=== PATIENT | female | born 1955 | race Caucasian/White ===

== ENCOUNTER 2018-02-28 09:21 | Day surgery (SDC) | payer OTHER ==
[~2018-02-28 09:21] MED LIST: BUPIV. HCL 0.25% (2.5MG/ML)/EPI. (1:200,000) PF 30 ML VIAL IJ ONE; DEXAMETHASONE SOD PHOS 4 MG/ML VIAL ONE; FAMOTIDINE 20 MG/2 ML VIAL ONE; FENTANYL CITRATE/PF 250 MCG/5 ML INJ. ONE; LACTATED RINGERS 1,000 ML IV.SOLN IV ONE; LEVALBUTEROL HCL 1.25 MG/3 ML AMPUL.NEB NEB ONE; LIDOCAINE HCL 2% PF 100MG/5ML VIAL IJ ONE; MIDAZOLAM HCL 2 MG/2 ML VIAL ONE; ONDANSETRON HCL/PF 4 MG/ 2ML VIAL ONE; PROPOFOL 200 MG/20 ML VIAL IV ONE; ROCURONIUM BROMIDE 10 MG/ML 5ML VIAL ONE; SEVOFLURANE 250 ML LIQUID IH ONE; SUGAMMADEX SODIUM 200 MG/2 ML VIAL IV ONE; THROMBIN (RECOMBINANT) 20,000 UNIT VIAL TP ONE; ceFAZolin SODIUM 1 GM VIAL ONE; ePHEDrine SULFATE 50 MG/1 ML IVP ONE
--- NOTE | 2018-05-06 14:44 | Operative Note ---
OPERATIVE REPORT PATIENT NAME: RM LANG DATE OF : 1955 MR#: PROCEDURE DATE: 05/06/2018 PREOPERATIVE DIAGNOSIS: Herniated nucleus pulposus, central stenosis, bilateral foraminal stenosis with neurogenic claudication, C5-6 and C6-7. POSTOPERATIVE DIAGNOSIS: Herniated nucleus pulposus, central stenosis, bilateral foraminal stenosis with neurogenic claudication, C5-6 and C6-7. PROCEDURES PERFORMED: 1. Radical anterior cervical discectomy, C5-6. 2. Radical anterior cervical discectomy, C6-7. 3. Partial vertebrectomy for decompression of central and bilateral foraminal stenosis, posterior inferior aspect of the C5 vertebral body. 4. Partial vertebrectomy for decompression of central and bilateral foraminal stenosis, posterior superior aspect of the C6 vertebral body. 5. Partial vertebrectomy for decompression of central and bilateral foraminal stenosis, posterior inferior aspect of the C6 vertebral body. 6. Partial vertebrectomy for decompression of central and bilateral foraminal stenosis, posterior superior aspect of the C7 vertebral body. 7. Placement of cervical total disc replacement arthroplasty at the C5-6 level. 8. Placement of cervical total disc replacement arthroplasty at the C6-7 level. 9. Intraoperative fluoroscopy and interpretation for needle placement. SURGEON: Leonel Lucas Jr., M.D. [employer]: None. ANESTHESIA: General. COMPLICATIONS: None. CONDITION FOLLOWING THE PROCEDURE: Good. OPERATIVE FINDINGS: This patient has suffered for months with cervical spine pain and bilateral upper extremity and shoulder pain attributable to identified by MRI scan cervical stenosis at C5-6 and C6-7, giving neurogenic claudication. The patient was counseled regarding options, having failed prolonged conservative management and being narcotic-dependent for the pain. The patient has elected cervical total disc replacement arthroplasty which was carried out today after adequate decompression and partial vertebrectomies. Implants were placed in ideal position as determined radiographically during the intraoperative portion of the procedure. DESCRIPTION OF PROCEDURE: The patient was taken to the operating room and intravenous antibiotics administered. The neck was shaved to the degree necessary. Steri-Drapes were applied at the intended surgical site edges. The surgical site was then scrubbed and prepped to sterility. Sterile draping then occurred. X-ray was brought into position and a radiographic marker was placed identifying the extended center line of the disc for intended surgical care. Beginning at the midline, a transverse surgical incision was made extending to the left approximately 2 cm. Once the epidermis was penetrated, the dermis was incised with electrocautery. Dissection through the subcutaneous tissue with Metzenbaum scissors and digitally was performed down until the interval between the trachea and the carotid triangle and the esophagus was clearly established down to the Longus colli muscles on the left side of the anterior cervical spine at the C5-6 level. Gentle retraction of the trachea and esophagus occurred to the right side while Kitner retractors were used to bluntly open the prevertebral fascia and reveal the annulus. Into the annulus was placed a safety needle and all retractors were removed and x-rays taken to confirm midline placement of the needle, and that the correct anatomic level was still identified. Electrocautery was then used to elevate the Longus colli muscles after [employer] Retractor blades were replaced. The needle had been removed. The [employer] tined retractor blades of the appropriate length were then inserted under the Longus colli muscles and retracted to reveal the anterior disc space sufficiently from left to right. The annulus was then incised with a #15 blade scalpel and removed. Pituitary rongeurs were then used to begin to evacuate the disc material. [place] pins were then inserted into the midportion of the vertebral body anteriorly above and below the affected disc. [place] retractor was then placed and distraction began. This allowed larger pituitary rongeurs to be inserted and all disc material was removed back to the impinging posterior osteophytes. A curette was then used and the endplates were curettaged until all cartilaginous material was removed, exposing bleeding bone. A smaller curette was then used to penetrate the posterior osteophyte all the way down to the removal of a portion of the posterior longitudinal ligament revealing the dura. Once the dura was visualized, a combination of 1- and 2-mm Kerrison rongeurs were inserted beneath the posterior longitudinal ligament and resection began of the posterior longitudinal ligament and associated osteophytes and bone spurs emanating posteriorly causing the posterior and lateral recess stenosis. Once the osteophytes had been resected to sufficiency as documented radiographically and laterally as documented by using a nerve hook to prove complete decompression, Gelfoam was used as necessary to control hemostasis. The appropriate implant sizing tools were then used to establish the appropriate width, depth, and height for implant placement. Any osteophytes anteriorly necessary to remove were then also removed with a Kerrison rongeur to allow access and placement of the implant. The cervical total disc replacement implant of the appropriate size was then affixed to the carrier and impacted into the midline position as determined radiographically. The lateral C-arm fluoroscopy visualization was then used to drive the implant to the desired depth as determined radiographically. The device for removing the implant insertion tool was used and the implant insertion tool was removed. The implant carrier was then grasped in the appropriate tool, loosened and removed, leaving the implant in place. For the purpose of this portion of the process, the [place] retractor was placed into a compression mode to securely hold on to the implant while the insertion tools were removed. Following this, irrigation was carried out. The retractor was then removed and the wound examined for hemostasis, which was confirmed to be present. The [place] pins had been removed and bone wax placed in the vertebral body holes left by the [place] pin insertion to achieve hemostasis. A 3-0 Vicryl suture approximated the subcutaneous tissue. A 5-0 Vicryl then approximated the subcuticular tissue. Dermabond then approximated the epidermis. A sterile dressing was applied and the patient was taken to the recovery room in good condition where normal motor and sensory examination was confirmed to be present. After completing the procedure at the C5-6 level initially, the retractors were withdrawn and replaced at the C6-7 level in order to allow access. The identical procedure as described was then carried out at the C6-7 level, terminating with irrigation and closure of the wound and application of a dressing and cervical collar. The patient was then taken to the recovery room where good motor and sensory examination was confirmed to be present. LEONEL LUCAS JR., M.D. ROSHNI/jennifer DANIEL
== END 2018-02-28 16:30 ==
LOC: OPSURG 09:21
PROVIDERS: ATTEND Orthopaedic Surgery
DX: M48.062 Spinal stenosis, lumbar region with neurogenic claudication (principal); M67.48 Ganglion, other site
CPT/HCPCS: 63042; J0690; J1100; J2001; J2250; J2405; J2704; J7614; J7120

== ENCOUNTER 2018-05-06 05:31 | Observation (INO) | payer OTHER ==
[2018-05-06] MEDS ORDERED: LACTATED RINGERS 1,000 ML IV.SOLN IV ONE (08:48)
[2018-05-06] MEDS ORDERED: ceFAZolin SODIUM 1 GM VIAL ONE (08:48)
[2018-05-06] MEDS ORDERED: DEXAMETHASONE SODIUM PHOSPHATE 10 MG/ML VIAL ONE (08:48)
[2018-05-06] MEDS ORDERED: LIDOCAINE HCL 2% PF 100MG/5ML VIAL IJ ONE (08:48)
[2018-05-06] MEDS ORDERED: ePHEDrine SULFATE 50 MG/1 ML IVP ONE (08:48)
[2018-05-06] MEDS ORDERED: fentaNYL CITRATE/PF 100 MCG/2 ML INJ. ONE ×3 (08:48→09:42)
[2018-05-06] MEDS ORDERED: FENTANYL CITRATE/PF 250 MCG/5 ML INJ. ONE (08:48)
[2018-05-06] MEDS ORDERED: NORMAL SALINE 1,000 ML IV.SOLN IV ONE (08:48)
[2018-05-06] MEDS ORDERED: MIDAZOLAM HCL 2 MG/2 ML VIAL ONE (08:48)
[2018-05-06] MEDS ORDERED: SEVOFLURANE 250 ML LIQUID IH ONE (08:48)
[2018-05-06] MEDS ORDERED: GELATIN SPONGE,ABSORB/PORCINE (SIZE 100) 1 EACH SPONGE TP ONE (08:48)
[2018-05-06] MEDS ORDERED: PROPOFOL 200 MG/20 ML VIAL IV ONE (08:48)
[2018-05-06] MEDS ORDERED: LEVALBUTEROL NEB 1.25 MG/3 ML VIAL.NEB IH ONE ×2 (08:48)
[2018-05-06] MEDS ORDERED: ROCURONIUM BROMIDE 10 MG/ML 5ML VIAL ONE (08:48)
[2018-05-06] MEDS ORDERED: THROMBIN (RECOMBINANT) 5,000 UNIT VIAL TP ONE (08:48)
[2018-05-06] MEDS ORDERED: SUGAMMADEX SODIUM 200 MG/2 ML VIAL IV ONE (08:48)
[2018-05-06] MEDS ORDERED: ONDANSETRON HCL/PF 4 MG/ 2ML VIAL ONE (08:48)
[2018-05-06] MEDS ORDERED: BACITRACIN 50,000 UNIT VIAL IR ONE (08:48)
[2018-05-06] MEDS ORDERED: DIAZEPAM 5 MG TABLET PO PRN (10:36)
[2018-05-06] MEDS ORDERED: diphenhydrAMINE HCL 25 MG TABLET PO PRN (10:36)
[2018-05-06] MEDS ORDERED: oxyCODONE/ACETAMINOPHEN 5/325 TABLET PO PRN (10:36)
[2018-05-06] MEDS ORDERED: MORPHINE SULFATE 4 MG/ML VIAL IVP PRN (10:36)
[2018-05-06] MEDS ORDERED: IPRATROPIUM/ALBUTEROL SULFATE 3 ML AMPUL.NEB NEB PRN (10:54)
--- NOTE | 2018-05-06 11:08 | History and Physical Report ---
History of Present Illnes - History of Present Illness Reason for Visit: Cervical disc replacement at C5/6, C6/7 History of Present Illness: This is a 62 year old female with intractable neck and arm pain. She had tried conservative treatment (medications/therapy) but got no relief from her s ymptoms. She was felt to be a candidate for TDR at C5/6, C6/7, and this was performed today without any complication. - Past Medical History Cardiac: HTN Pulmonary: COPD Gastrointestinal: GERD, Other (Colon cancer, cirrhosis ) Heme/Onc: Other (DVT (30 years ago)) Hepatobiliary: Hep A/B/C (C) Psych: Bipolar, Depression, Other (PTSD) Musculoskeletal: Osteoarthritis, Other (Fibromyalgia) - Past Surgical History Past Surgical History: Cholecystectomy, Hysterectomy, Other (Hemorrhoidectomy, carpal tunnel release, Elbow surgery, LFD/discectomy, Posterior lumbar fusion, c olonoscopy, hemorrhoidectomy) - Past Social History Smoke: 1 pack per day Alcohol: Rare Drugs: None (Remote history of methamphetamine abuse) Lives: With Family Domestic Violence: Negative - Health Maintenance Health Maintenance: Cholesterol Influenza Vaccine: Current for this Influenza Season Pneumonia Vaccine: Yes Resuscitation Status: Resusciation Status Resuscitation Status Full Code - Unable to Obtain History Unable to Obtain: No Review of Systems - Review of Systems Constitutional: negative: Fever Eyes: negative: pain ENT: Other (neck pain). negative: Ear Pain, Ear Discharge Respiratory: negative: Cough, Shortness of Breath Cardiovascular: negative: Chest Pain Gastrointestinal: negative: Nausea, Vomiting Genitourinary: negative: Dysuria Musculoskeletal: Neck Pain, Arm Pain Skin: negative: Rash, Lesions Neurological: negative: Weakness, Numbness, Incoordination, Change in Speech, Confusion - Medications/Allergies Current Inpatient Medications: Current Inpatient Medications Albuterol/Ipratropium (Duoneb) 3 ml NEB Q4 PRN PRN Reason: Wheezing Carvedilol (Coreg) 12.5 mg PO BS [place] Cefazolin Sodium/Dextrose (Ancef 1 Gm/50 Ml-Dextrose) 1 gm IV Q8H [facility] Stop: 05/06/18 21:31 Diazepam (Valium) 5 mg PO Q8H PRN PRN Reason: Anxiety/muscle spasm Diphenhydramine HCl (Benadryl) 25 mg PO Q4 PRN PRN Reason: Itching or Pruritis Docusate Sodium (Colace) 100 mg PO BID [facility] Stop: 05/08/18 09:01 Famotidine (Pepcid) 20 mg IVP BID [facility] Stop: 05/10/18 20:59 Gabapentin (Neurontin) 600 mg PO TID [facility] Heparin Sodium (Porcine) (Heparin) 5,000 unit SQ Q12 [facility] Hydrochlorothiazide (Hydrodiuril) 25 mg PO DAILY [facility] Sodium Chloride (Normal Saline) 1,000 mls @ 100 mls/hr IV Q10H [facility] Stop: 05/07/18 10:59 Ketorolac Tromethamine (Toradol) 15 mg IVP Q6 PRN PRN Reason: For Mild Pain 1-4 Stop: 05/10/18 10:35 Lamotrigine (Lamictal) 25 mg PO HS [facility] Lisinopril (Prinivil) 20 mg PO DAILY [facility] Miscellaneous (Non Form) 1 each PO TID [facility] Morphine Sulfate (Morphine Sulfate) 4 mg IVP Q2 PRN PRN Reason: For Severe Pain 8-10 Stop: 05/07/18 10:35 Oxycodone/Acetaminophen (Percocet 5-325 Mg Tablet) 2 each PO Q4 PRN PRN Reason: Moderate pain 5-7 Pravastatin Sodium (Pravachol) [address] [facility] Exam - Exam General: Alert, Oriented to Person, Moderate distress (due to neck pain) HEENT: Atraumatic, PERRLA, EOMI, Hearing Grossly Normal Neck: Normal Range of Motion (Wearing collar, wound is dry) Lungs: Clear to auscultation, Decreased Air Movement Cardiovascular: Regular rate Murmur: No: Other Abdomen: Normal bowel sounds, Soft, No tenderness Genitourinary: No: Other Male Genitourinary: No: Other Female Genitourinary: No: Other Integumentary: Normal, [place], Warm Extremities: No clubbing, No cyanosis, No edema Neurological: Normal speech Psych/Mental Status: Mental status NL Assessment/Plan - Assessment/Plan (1) S/P cervical disc replacement Status: Acute Current Visit: Yes Assessment: No intraoperative complications noted on record Her pain may be difficult to control due to her history of chronic narcotic use (2) Hypertension Status: Acute Current Visit: Yes Assessment: Continue Lisinopril/HCTZ (3) GERD (gastroesophageal reflux disease) Status: Acute Current Visit: Yes Assessment: Pantoprazole 40 mg po qd (4) Hyperlipidemia Status: Acute Current Visit: Yes Assessment: Continue simvastatin (5) Anxiety Status: Acute Current Visit: Yes Assessment: Continue clonazepam (6) Bipolar affective disorder Status: Acute Current Visit: Yes Assessment: Continue lamictal 25 mg po qhs (7) Chronic narcotic dependence Status: Acute Current Visit: Yes Assessment: May complicate pain management postoperatively (8) COPD (chronic obstructive pulmonary disease) Status: Acute Current Visit: Yes Qualifiers: COPD type: emphysema Emphysema type: panlobular Qualified Code(s): J43.1 - Panlobular emphysema Assessment: Duoneb by nebulizer is ordered Encouraged smoking cessation (9) Smoker Status: Acute Current Visit: Yes Assessment: Add 14 mg nicotine patch VTE Assessment - RISK FACTOR SCORE VTE RISK FACTOR SCORES: AGE OVER 60 YEARS, MINOR SURGERY/ ANESTHESIA TIME < 1 HOUR (On heparin)
[2018-05-06] MEDS: KETOROLAC TROMETHAMINE 30 MG/1ML VIAL IVP PRN ×2 (11:22→17:16)
[2018-05-06] MEDS: 0.9 % SODIUM CHLORIDE 1,000 ML IV SCH ×2 (11:23→23:11)
[2018-05-06] MEDS: NICOTINE 14mg PATCH.TD24 TD SCH (11:43)
[2018-05-06] MEDS ORDERED: ZOLPIDEM TARTRATE 5 MG TABLET PO PRN (13:22)
[2018-05-06] MEDS: GABAPENTIN 300 MG CAPSULE PO SCH ×2 (13:34→17:50)
[2018-05-06] MEDS: Non-Formulary 1 EACH PO SCH ×2 (13:44→17:53)
[2018-05-06] MEDS: fentaNYL CITRATE/PF 100 MCG/2 ML INJ. IV PRN ×3 (13:51→22:30)
[2018-05-06] MEDS: CEFAZOLIN SODIUM/DEXTROSE,ISO 1 GM/50 ML PIGGYBACK IV SCH ×2 (13:54→21:55)
[2018-05-06 15:42] VITALS: BMI 32.9
[2018-05-06] MEDS: CARVEDILOL 12.5 MG TABLET PO SCH (17:50)
[2018-05-06] MEDS ORDERED: PRAVASTATIN SODIUM 20 MG TABLET PO ONE (19:57)
[2018-05-06] MEDS ORDERED: PANTOPRAZOLE SODIUM 40 MG TABLET.DR ONE (19:57)
[2018-05-06] MEDS ORDERED: 0.9 % SODIUM CHLORIDE 50 ML IV ONE (20:00)
[2018-05-06] MEDS: DOCUSATE SODIUM 100 MG CAPSULE PO SCH (20:59)
[2018-05-06] MEDS: clonazePAM 0.5 MG TABLET PO SCH (20:59)
[2018-05-06] MEDS ORDERED: PRAVASTATIN SODIUM 20 MG TABLET PO SCH (21:00)
[2018-05-06] MEDS ORDERED: LAMOTRIGINE 100 MG TABLET PO SCH (21:00)
[2018-05-06] MEDS ORDERED: FAMOTIDINE 20 MG/2 ML VIAL IVP SCH (21:00)
[2018-05-06] MEDS: HEPARIN SODIUM 5000 UNIT/1 ML SQ SCH (21:02)
[2018-05-07] MEDS: KETOROLAC TROMETHAMINE 30 MG/1ML VIAL IVP PRN ×3 (01:31→16:30)
[2018-05-07] MEDS: fentaNYL CITRATE/PF 100 MCG/2 ML INJ. IV PRN (05:25)
[2018-05-07] MEDS ORDERED: PANTOPRAZOLE SODIUM 40 MG TABLET.DR PO SCH (07:00)
[2018-05-07] MEDS: CARVEDILOL 12.5 MG TABLET PO SCH (08:07)
[2018-05-07] MEDS: DOCUSATE SODIUM 100 MG CAPSULE PO SCH (08:10)
[2018-05-07] MEDS: Non-Formulary 1 EACH PO SCH ×2 (08:11→13:55)
[2018-05-07] MEDS: clonazePAM 0.5 MG TABLET PO SCH (08:11)
[2018-05-07] MEDS: GABAPENTIN 300 MG CAPSULE PO SCH ×2 (08:11→13:55)
[2018-05-07] MEDS: HEPARIN SODIUM 5000 UNIT/1 ML SQ SCH (08:11)
[2018-05-07] MEDS: NICOTINE 14mg PATCH.TD24 TD SCH (08:11)
[2018-05-07] MEDS ORDERED: LISINOPRIL 10 MG TABLET PO SCH (09:00)
[2018-05-07] MEDS ORDERED: HYDROCHLOROTHIAZIDE 25 MG TABLET PO SCH (09:00)
--- NOTE | 2018-05-07 09:17 | Inpatient Progress Note ---
Subjective - Required Recertification Statement I anticipate X number of days because-include discharge plan: 1 - Review of Systems Events since last encounter: Radha is doing well with ambulation. She has very little appetite, but has kept some food down. No BM so far, but passing gas well. She does not have a hire car driver, so we are discussing with social worker assistant means to get a ride home. Her car is here also, so she would need to have two people come from [place] to bring her and her car home. General: Denies: Chills, Night Sweats HEENT: Denies: Head Aches Pulmonary: Denies: Dyspnea, Cough Cardiovascular: Denies: Chest Pain Gastrointestinal: Denies: Nausea, Vomiting Genitourinary: Denies: Dysuria Musculoskeletal: Neck Pain (and minimal pain with swallowing) Neurological: Denies: Weakness, Numbness Objective - Exam Vitals and I&O: Vital Signs Temp 97.6 F 05/07/18 06:00 Pulse 74 05/07/18 06:00 Resp 18 05/07/18 06:00 BP 132/82 05/07/18 06:00 Pulse Ox 95 05/07/18 06:00 Intake & Output 05/06/18 05/06/18 05/07/18 11:59 23:59 11:59 Intake Total 1870 3380 480 Output Total 300 400 Balance 1870 3080 80 Weight 107.048 kg Intake: IV 1600 2300 Right Proximal Port Wrist 1600 2300 Oral 270 1080 480 Output: Urine 300 400 Other: Voiding Method Toilet # Voids 1 1 1 # Bowel Movements 0 0 General: Alert, Oriented to Person, Oriented to Place HEENT: Atraumatic, PERRLA, EOMI Neck: Other (Incision is dry) Lungs: Clear to auscultation Cardiovascular: Regular rate, Normal S1 Abdomen: Normal bowel sounds, Soft, Decreased Bowel Sounds Extremities: No clubbing, No cyanosis, No edema Skin: Normal, [place], Warm, Dry Neurological: Normal gait, Normal speech, Strength Equal Bilat Psych/Mental Status: Mental status NL, Mood NL Assessment/Plan - Assessment/Plan (1) S/P cervical disc replacement Status: Acute Current Visit: Yes Assessment: Ambulate today. Work on transportation issues (2) Hypertension Status: Acute Current Visit: Yes Assessment: Well controlled (3) GERD (gastroesophageal reflux disease) Status: Acute Current Visit: Yes Assessment: Continue famotidine/pantoprazole (4) Hyperlipidemia Status: Acute Current Visit: Yes Assessment: Chronic, stable Plan: Continue simvastatin (5) Anxiety Status: Acute Current Visit: Yes Assessment: Continue clonazepam (6) Bipolar affective disorder Status: Acute Current Visit: Yes (7) Chronic narcotic dependence Status: Acute Current Visit: Yes (8) COPD (chronic obstructive pulmonary disease) Status: Acute Current Visit: Yes Qualifiers: COPD type: emphysema Emphysema type: panlobular Qualified Code(s): J43.1 - Panlobular emphysema (9) Smoker Status: Acute Current Visit: Yes
[2018-05-07] MEDS ORDERED: IBUPROFEN 400 MG TABLET PO ONE (12:25)
--- NOTE | 2018-05-07 13:12 | Discharge Summary ---
Discharge Summary - Discharge Sumary History of Present Illness: ADMISSION DATE: 05/06/18 DISCHARGE DATE 05/07/18 This a 62 year old female admitted with intractible neck and arm pain which had failed conservative treatment. She had been evaluated by Dr. Lucas and felt to be a candidate for total disc replacement at C5/6, C6/7. This was performed on the day of admission. Condition at Discharge: Stable Consultations this Visit: None Procedures this Visit: None (Total disc replacement at C5/6, C6/[address] Lucas) Allergies/Adverse Reactions: Allergies Allergy/AdvReac Type Severity Reaction Status Date / Time morphine Allergy Severe Hives Verified 05/06/18 15:48 cyclobenzaprine Allergy Intermediate Hives Verified 05/06/18 15:48 [From Flexeril] acetaminophen Allergy Mild Verified 05/06/18 15:48 phenyltoloxamine AdvReac Abdominal Verified 05/06/18 15:48 [From Aceta-Gesic (with Bloating phenyltolox)] Patient Problems: Current Active Problems Problem Status Onset Anxiety Acute Bipolar affective disorder Acute COPD (chronic obstructive pulmonary disease) Acute Chronic narcotic dependence Acute GERD (gastroesophageal reflux disease) Acute Hyperlipidemia Acute Hypertension Acute S/P cervical disc replacement Acute Smoker Acute Discharge Summary: She was admitted on 05/06/18, and TDR ast C5/6, C6/7 was performed. She had no complications in surgery. She was ambulating the day of surgery. Her son was able to come from [place] to get her today (05/07/18) and she was discharged to home. She did not fill her prescriptions for percocet, as she is intolerant to oxycodone, and she resumes her vicoprofen and [place] ER 60 mg po BID. She will follow up with Dr. Lucas as scheduled.
[2018-05-07 13:22] VITALS: BP 127/74
== END 2018-05-07 17:30 | disposition home or self-care (01) ==
LOC: OPSURG 05:31 → SOUTH 10:37
PROVIDERS: ADMIT Family Medicine; ATTEND Family Medicine
DX: M48.02 Spinal stenosis, cervical region (principal); M50.222 Other cervical disc displacement at C5-C6 level; M50.223 Other cervical disc displacement at C6-C7 level; F17.210 Nicotine dependence, cigarettes, uncomplicated
CPT/HCPCS: 22856; 22858; 97116; 97161; 97165; 97530; G0378; J0690; J1644; J1885; J2001; J2250; J2405; J2704; J3010; J3490; J7030; J7120; J7614; C1889